=== PATIENT | female | born 1970 | race African-American/Black ===

== ENCOUNTER → 2019-08-20 | Emergency (ER) | payer SELFPAY ==
[~2019-08-20] VITALS: Ht 177.8 cm; Wt 72.6 kg
[~2019-08-20] MED LIST: PREDNISONE20 MG ORAL
[2019-08-20 21:35] VITALS: BP 147/83
--- NOTE | 2019-08-20 21:35 | NUR ---
ED Nurse Note: Recieved pt from home, here with c/o bilat hand burning with skin peeling and intermittent edema x 1 month, burning started today and not stopping so worse today, both hands have skin peeling and mild swelling at joints, all pulses ared present and pt has less movement in finger joints bilat, pt speaks no kyrgyz, has niece at bedside to assist with translation.
--- NOTE | 2019-08-20 21:46 | Emergency Room Report ---
History of Present Illness General Chief Complaint: Skin Rash/Abscess Source: Patient Present Illness HPI Disclaimer: Please note that this report is being documented using DRAGON technology. This can lead to erroneous entry secondary to incorrect interpretation by the dictating instrument. HPI: 49-year-old female presents for evaluation of itchy and raw hands. Symptoms present approximately 2 weeks. She has been getting worse and complains of itchiness throughout the day without an obvious trigger. Denies any changes in hand lotion, soaps, clothing, medication. No known allergies. In light of the COVID-19 epidemic the patient has been washing her hands throughout the day multiple times and using vinegar as well as bleach as a disinfectantl. Denies any bug bites. No other areas of itching or skin breakdown. Has been using hydrocortisone cream, Benadryl with some improvement but itchiness persist. PMH: Denies PSH: Denies Allergies: Denies Social Hx: Denies Allergies: Coded Allergies: No Known Allergies (Unverified , 08/20/19) COVID-19 Screening Contact w/high risk pt: No Recent Travel to affected area: No Experienced COVID-19 symptoms?: No COVID-19 Testing performed TELE[employer] SALES REPRESENTATIVE: No Patient History Last Menstrual Period: na Now: No Nursing Documentation-PMH Past Medical History: No Stated History Review of Systems All Other Systems: negative except mentioned in HPI Physical Exam Vital Signs Date Time Temp Pulse Resp B/P (MAP) Pulse Ox O2 Delivery O2 Flow Rate FiO2 08/20/19 21:25 98.8 95 18 147/83 (104) 97 Room Air General: Awake and alert, no acute distress HEENT: NC/AT. EOMI. Resp: Normal work of breathing Skin: Multiple excoriations over the hands bilaterally. No edema. No vesicles , no ulcers. MSK: Normal tone and bulk. Moving all extremities. No obvious deformity. Neuro: Awake and alert. Mentating appropriately Medical Decision Making Diagnostic Impression: Primary Impression: Eczema ER Course This is a 49-year-old female presenting for evaluation of bilateral hand itching for the past 2 weeks. She has been using vinegar to wash her hands in light of the COVID-19 epidemic. Her physical exam is consistent with an atopic dermatitis and extensive dry skin. No evidence of cellulitis, infection or bug infestation. Encouraged her to stop using vinegar and bleach as disinfectants on her hands due to excessive drying. Encouraged her to apply Vaseline or other moisturizer. Will prescribe prednisone and continue Benadryl that she has been using. Encouraged her to follow-up with her PMD. Discussed reasons to return to the emergency department. She understands and agrees with treatment plan. Last Vital Signs Date Time Temp Pulse Resp B/P (MAP) Pulse Ox O2 Delivery O2 Flow Rate FiO2 08/20/19 21:25 98.8 95 18 147/83 (104) 97 Room Air Disposition: HOME, SELF-CARE Condition: Stable Scripts Prednisone* (PREDNISONE*) 20 Mg Tablet 40 MG ORAL DAILY for 5 Days, #10 TAB Prov: Wale Gonzalez MD 08/20/19 Wale Gonzalez MD August 20, 2019 21:46
[2019-08-20 21:55] VITALS: BP 147/83
--- NOTE | 2019-08-20 21:55 | NUR ---
ER DISCHARGE NOTE: Patient is cleared to be discharged per ERMD, pt is aox4, on room air, with stable vital signs. pt was given dc and prescription instructions, pt was able to verbalize understanding, pt id band removed without complications. pt is able to ambulate with steady gait. pt took all belongings.
== END | disposition home or self-care (01) ==
LOC: EMR 21:45
DX: L30.9 Dermatitis, unspecified (principal)
CPT/HCPCS: 99282